=== PATIENT | male | born 1985 ===

== ENCOUNTER 2018-10-28 13:02 | Emergency (ER) | payer SELFPAY ==
[2018-10-28 13:20] VITALS: TEMP 98; O2SAT 98
[2018-10-28] MEDS ORDERED: Naproxen 550 mg Tab PO STA (13:30)
[2018-10-28] MEDS ORDERED: Naproxen 550 mg Tab PO ONE (13:36)
--- NOTE | 2018-10-28 14:27 | RAD ---
Date of service: 10/28/2018 PROCEDURE: Radiographs of the Lumbar Spine. HISTORY: low back pain after fall COMPARISON: No prior. FINDINGS: BONES: Normal alignment. No listhesis. No fracture. DISC SPACES: Unremarkable. OTHER FINDINGS: None. IMPRESSION: Unremarkable radiographs of the lumbar spine.
--- NOTE | 2018-10-28 14:27 | RAD ---
Date of service: 10/28/2018 PROCEDURE: Radiographs of the Left Shoulder HISTORY: left shoulder pain after fall COMPARISON: No prior. FINDINGS: BONES: Normal. No fracture. JOINTS: Mild glenohumeral osteoarthritis. The acromioclavicular articulation is unremarkable. There are no articular erosions. SOFT TISSUES: Normal. OTHER FINDINGS: None. IMPRESSION: Mild glenohumeral osteoarthritis. No acute fracture.
--- NOTE | 2018-10-28 14:28 | RAD ---
Date of service: 10/28/2018 PROCEDURE: Right Knee Radiographs. HISTORY: right knee pain after fall COMPARISON: None. FINDINGS: BONES: Normal. No fracture. JOINTS: Normal. No osteoarthritis. JOINT EFFUSION: None. OTHER FINDINGS: None. IMPRESSION: Normal radiographs of the right knee.
--- NOTE | 2018-10-28 14:31 | C.PDOC ---
History Of Present Illness 33 y/o male presents to ED complaining of left shoulder pain, lower back pain, and right knee pain since earlier today. Patient states he was crossing the street when he tripped and fell, landing on his left side. Otherwise he denies head injury, LOC, dizziness, chest pain, or SOB. Time Seen by Provider: 10/28/18 13:22 Chief Complaint (Nursing): Lower Extremity Problem/Injury History Per: Patient History/Exam Limitations: no limitations Onset/Duration Of Symptoms: Hrs Current Symptoms Are (Timing): Still Present Past Medical History Reviewed: Historical Data, Nursing Documentation, Vital Signs Vital Signs: Last Vital Signs Temp 98 F 10/28/18 13:17 Pulse 86 10/28/18 13:17 Resp 18 10/28/18 13:17 BP 136/76 10/28/18 13:17 Pulse Ox 98 10/28/18 13:17 Family History: States: No Known Family Hx - Social History Hx Alcohol Use: No Hx Substance Use: No - Immunization History Hx Tetanus Toxoid Vaccination: Yes Hx Influenza Vaccination: Yes Hx Pneumococcal Vaccination: No Review Of Systems Except As Marked, All Systems Reviewed And Found Negative. Cardiovascular: Negative for: Chest Pain Respiratory: Negative for: Shortness of Breath Musculoskeletal: Positive for: Shoulder Pain (left), Back Pain (lower), Other (Right knee pain) Neurological: Negative for: Dizziness, Other (LOC) Physical Exam - Physical Exam Appears: Non-toxic, No Acute Distress Skin: Warm, Dry Head: Atraumatic, Normacephalic Eye(s): bilateral: Normal Inspection Oral Mucosa: Moist Neck: Normal ROM, Supple Chest: Symmetrical Cardiovascular: Rhythm Regular, No Murmur Respiratory: Normal Breath Sounds, No Rales, No Rhonchi, No Wheezing Back: Paraspinal Tenderness Extremity: Normal ROM, Tenderness (Left shoulder anterior tenderness), No Deformity, No Swelling Extremity: Right: Other (Right knee tenderness, no abrasions or swelling) Neurological/Psych: Oriented x3, Normal Speech, Normal Motor, Normal Sensation ED Course And Treatment O2 Sat by Pulse Oximetry: 98 (RA) Pulse Ox Interpretation: Normal - Other Rad Left Shoulder XR X-Ray: Read By Radiologist Interpretation: FINDINGS: BONES: Normal. No fracture. JOINTS: Mild glenohumeral osteoarthritis. The acromioclavicular articulation is unremarkable. There are no articular erosions. SOFT TISSUES: Normal. OTHER FINDINGS: None. IMPRESSION: Mild glenohumeral osteoarthritis. No acute fracture. Lumbar Spine XR X-Ray: Read By Radiologist Interpretation: FINDINGS: BONES: Normal alignment. No listhesis. No fracture. DISC SPACES: Unremarkable. OTHER FINDINGS: None. IMPRESSION: Unremarkable radiographs of the lumbar spine. Right Knee XR X-Ray: Read By Radiologist Interpretation: FINDINGS: BONES: Normal. No fracture. JOINTS: Normal. No osteoarthritis. JOINT EFFUSION: None. OTHER FINDINGS: None. IMPRESSION: Normal radiographs of the right knee. Progress Note: Knee XR, left shoulder XR, and L-Spine XR ordered and reviewed. Patient was given naproxen 550 mg PO. Instructed patient to follow up with PMD in 1-2 days for further evaluation and to return to ER if pain feels worse. Disposition Counseled Patient/Family Regarding: Diagnosis, Need For Followup, Rx Given - Disposition Referrals: [facility] [Outside] Disposition: HOME/ ROUTINE Disposition Time: 14:30 Condition: STABLE Additional Instructions: FOLLOW UP WITH YOUR DOCTOR IN 1-2 DAYS USE MEDICATIONS NEEDED FOR PAIN RETURN TO EMERGENCY ROOM IF YOUR SYMPTOMS BECOME WORSE SEGUIR CON MASON MDICO EN 1-2 DEWITT USAR MEDICAMENTOS JAYLA SE NECESITA PARA EL DOLOR VUELVA A LA ERYN DE EMERGENCIA SI OMID SNTOMAS SE HACEN PEOR Prescriptions: Naproxen 375 mg PO BID PRN #20 tablet PRN Reason: pain Instructions: Lumbar Muscle Strain (DC), Knee Sprain (DC), Shoulder Sprain (DC) Forms: [employer] ([place]) Print Language: ROMANIAN - POA Present On Arrival: Falls Or Trauma - Clinical Impression Clinical Impression: Sprain of left shoulder, Right knee sprain, Lumbar sprain - Scribe Statement The provider has reviewed the documentation as recorded by the Kaylie Ng Provider Attestation: All medical record entries made by the Kaylie were at my direction and personally dictated by me. I have reviewed the chart and agree that the record accurately reflects my personal performance of the history, physical exam, medical decision making, and the department course for this patient. I have also personally directed, reviewed, and agree with the discharge instructions and disposition.
[2018-10-28 14:38] VITALS: BP 122/81; PULSE 68; RESP 16
== END 2018-10-28 14:37 | disposition home or self-care (01) ==
LOC: C.ER 13:02
DX: S83.91XA Sprain of unspecified site of right knee, initial encounter (principal); S43.402A Unspecified sprain of left shoulder joint, initial encounter; S33.5XXA Sprain of ligaments of lumbar spine, initial encounter; W01.0XXA Fall on same level from slipping, tripping and stumbling without subsequent striking against object, initial encounter; Y92.410 Unspecified street and highway as the place of occurrence of the external cause